=== PATIENT | male | born 1955 | race Caucasian/White ===

== ENCOUNTER → 2020-12-04 | Outpatient (CLI) | payer OTHER ==
[~2020-12-04] MED LIST: ALBU8.5H8 INH; ARMOUR THYROID PO; ATOR20TA37 PO; BUTA-218 PO; BUTA1CAP28 PO; CAMBIA PO; DICL25CA4 PO; DICL75TA3 PO; FISH400C3 PO; FLUT1AER INH; IBUP-1221 PO; INHALERS FOR ASTHMA PO; LANS30CA PO; LYSI500T25 PO; MAGN400T36 PO; OMEP-110 PO; POTA2TAB8 PO; POTASSIUM GLUCONATE PO; TADA5TAB2 PO; TAMS-11 PO; THYR30TA PO; ZINC50CA PO; [UNRECOGNIZED DRUG - CODE] PO; [UNRECOGNIZED DRUG - OTHER] PO
== END | disposition home or self-care (01) ==
LOC: STAR 15:43
PROVIDERS: ATTEND Orthopaedic Surgery
DX: Z01.818 Encounter for other preprocedural examination (principal); M17.12 Unilateral primary osteoarthritis, left knee; I45.10 Unspecified right bundle-branch block; I44.0 Atrioventricular block, first degree
CPT/HCPCS: 87081; 87147; 93005

== ENCOUNTER 2020-12-09 10:44 | Day surgery (SDC) | payer OTHER ==
[~2020-12-09] VITALS: Ht 185.4 cm; Wt 122.0 kg
[~2020-12-09 10:44] MED LIST changes: +TRANEXAMIC ACID 100 MG/ML, 10ML ONE
[2020-12-09 11:17] VITALS: BP 142/96
[2020-12-09] MEDS ORDERED: CHLORHEXIDINE 15 ML UDC ONE (11:23)
[2020-12-09] MEDS ORDERED: LACTATED RINGERS 1,000 ML IV SCH (11:30)
[2020-12-09] MEDS ORDERED: CHLORHEXIDINE 15 ML UDC PO ONE (11:30)
[2020-12-09] MEDS ORDERED: MIDAZOLAM 1 MG/ML, 2ML ONE (12:52)
[2020-12-09] MEDS ORDERED: FENTANYL PF 250 MCG/5ML ONE (12:52)
[2020-12-09] MEDS ORDERED: BUPIVACAINE/PF 0.5% ONE ×2 (13:20→14:07)
[2020-12-09] MEDS ORDERED: EPINEPHRINE 1 MG/ML, 1ML ONE (13:20)
[2020-12-09] MEDS ORDERED: ALBUTEROL HFA 90 MCG/SPRAY INH PRN (13:30)
[2020-12-09] MEDS ORDERED: MIDAZOLAM 1 MG/ML, 2ML IV PRN (14:00)
[2020-12-09] MEDS ORDERED: ACETAMINOPHEN 325 MG TABLET PO PRN (14:00)
[2020-12-09] MEDS ORDERED: OXYcodone 5 MG/5 ML ORAL.SOL UDC PO PRN (14:00)
[2020-12-09] MEDS ORDERED: ALBUTEROL SULFATE 2.5 MG/3 ML NPPB PRN (14:00)
[2020-12-09] MEDS ORDERED: PROMETHAZINE 25 MG/ML, 1ML IVPush PRN (14:00)
[2020-12-09] MEDS ORDERED: LABETALOL 5MG/ML, 20ML IV PRN (14:00)
[2020-12-09] MEDS ORDERED: MEPERIDINE/PF 25MG/0.5ML IVPush PRN (14:00)
[2020-12-09] MEDS ORDERED: LIDOCAINE-MPF 2% ,5ML ONE (14:07)
[2020-12-09] MEDS ORDERED: DEXAMETHASONE 4 MG/ML, 1ML ONE (14:25)
[2020-12-09] MEDS ORDERED: CEFAZOLIN 1,000 MG ONE ×2 (14:25→14:26)
[2020-12-09] MEDS ORDERED: ONDANSETRON 2MG/ML, 2ML ONE (14:25)
[2020-12-09] MEDS ORDERED: PROPOFOL 10 MG/ML, 20ML ONE (14:25)
[2020-12-09] MEDS ORDERED: ROCURONIUM 10MG/ML,5ML ONE (14:26)
[2020-12-09] MEDS ORDERED: MORPHINE SULFATE 4 MG/ML, 1ML ONE (14:26)
[2020-12-09] MEDS ORDERED: SUCCINYLCHOLINE 20 MG/ML, 10ML ONE (14:26)
[2020-12-09] MEDS ORDERED: OXYcodone 5 MG/5 ML ORAL.SOL UDC ONE (15:08)
[2020-12-09] MEDS: FENTANYL PF 100 MCG/2ML IV PRN ×2 (15:08→15:20)
[2020-12-09] MEDS ORDERED: ACETAMINOPHEN 650 MG/20.3 ML UDC ONE (15:08)
[2020-12-09] MEDS ORDERED: FENTANYL PF 100 MCG/2ML ONE (15:08)
[2020-12-09] MEDS ORDERED: METHOCARBAMOL 1,000 MG in DEXTROSE 5% 100 ML IV ONE (15:30)
[2020-12-09] MEDS ORDERED: HYDROmorphone 2 MG/ML, 1ML ONE ×3 (15:47→18:27)
[2020-12-09] MEDS: HYDROmorphone 1 MG/ML, 1ML INJ IVPush PRN ×4 (15:48→18:30)
[2020-12-09] MEDS ORDERED: DICLOFENAC POTASSIUM PO SCH (21:00)
[2020-12-09] MEDS ORDERED: DICLOFENAC SODIUM 75 MG TABLET.DR PO SCH (21:00)
[2020-12-09] MEDS ORDERED: ATORVASTATIN 20 MG TABLET PO SCH (21:00)
[2020-12-10] MEDS ORDERED: THYROID 30 MG TABLET PO SCH (06:00)
[2020-12-10] MEDS ORDERED: TEMPLATE NON-FORMULARY MED. (Lansoprazole** 30 MG) PO SCH (09:00)
[2020-12-10] MEDS ORDERED: TAMSULOSIN 0.4 MG CAP.ER.24H PO SCH (09:00)
== END 2020-12-09 19:15 | disposition home or self-care (01) ==
LOC: OUT 10:44
PROVIDERS: ATTEND Orthopaedic Surgery
DX: M17.12 Unilateral primary osteoarthritis, left knee (principal); M25.762 Osteophyte, left knee; J45.909 Unspecified asthma, uncomplicated; G47.33 Obstructive sleep apnea (adult) (pediatric); E78.5 Hyperlipidemia, unspecified; K21.9 Gastro-esophageal reflux disease without esophagitis; N40.0 Benign prostatic hyperplasia without lower urinary tract symptoms; E66.9 Obesity, unspecified; Z79.899 Other long term (current) drug therapy; Z87.891 Personal history of nicotine dependence
CPT/HCPCS: 27447; 64447; C1776; J0171; J0330; J0690; J1100; J1170; J2250; J2270; J2405; J2704; J2800; J3010; J7120